=== PATIENT | female | born 1960 | race Caucasian/White ===

== ENCOUNTER 2018-03-04 14:00 | Emergency (ER) | payer OTHER ==
[2018-03-04 14:10] VITALS: BP 121/75; PULSE 110; RESP 18; TEMP 98.6
[2018-03-04] MEDS ORDERED: CLINDAMYCIN 150 MG CAP PO STA (14:42)
--- NOTE | 2018-03-04 14:45 | ED ---
ENT HPI - General Chief complaint: ENT Stated complaint: Jaw swelling Time Seen by Provider: 03/04/18 14:12 Source: patient, RN notes reviewed, old records reviewed Mode of arrival: ambulatory Limitations: no limitations - History of Present Illness Initial comments: Patient is a 58-year-old female with chief complaint of right-sided jaw pain and swelling for the past day. Patient reports is radiating up towards her right ear. She states that she started to have some minor swelling over the right side of her jaw 2 days ago. More pronounced today. Patient is here for the next month on vacation. She is originally from [place]. History of hypertension. Patient states that she is not diabetic. She does wear dentures. She does take care of her dentures and triceps of them every night. It has been difficult to her distal, radial night was traveling. Patient states that she is occasionally had some sweats denies any specific fevers. She denies any difficulty breathing or swallowing. - Related Data Previous Rx's Medication Instructions Recorded Clindamycin [Cleocin] 450 mg PO TID 7 Days capsule 03/04/18 Allergies Allergy/AdvReac Type Severity Reaction Status Date / Time codeine AdvReac nose Verified 03/04/18 14:10 itching and vomiting Review of Systems ROS Statement: Those systems with pertinent positive or pertinent negative responses have been documented in the HPI. ROS Other: All systems not noted in ROS Statement are negative. Past Medical History Past Medical History: GERD/Reflux, Hypertension History of Any Multi-Drug Resistant Organisms: None Reported Past Surgical History: Section, Cholecystectomy Past Psychological History: Depression Smoking Status: Current every day smoker Past Alcohol Use History: None Reported Past Drug Use History: None Reported General Exam - General Exam Comments Initial Comments: Patient's a 58-year-old female presents emergency Department today. She is well -appearing. No acute distress. Limitations: no limitations General appearance: alert, in no apparent distress Head exam: Present: atraumatic, normocephalic, normal inspection Eye exam: Present: normal appearance, PERRL, EOMI. Absent: scleral icterus, conjunctival injection, periorbital swelling ENT exam: Present: mucous membranes moist. Absent: normal exam (Patient does have evidence of swelling over the right side of her jaw. She wears dentures. Tenderness over the gumline on the right molar aspect. No drainable abscess at this time.) Neck exam: Present: normal inspection. Absent: tenderness, meningismus, lymphadenopathy Respiratory exam: Present: normal lung sounds bilaterally. Absent: respiratory distress, wheezes, rales, rhonchi, stridor Cardiovascular Exam: Present: regular rate, normal rhythm, normal heart sounds. Absent: systolic murmur, diastolic murmur, rubs, gallop, clicks GI/Abdominal exam: Present: soft, normal bowel sounds. Absent: distended, tenderness, guarding, rebound, rigid Extremities exam: Present: normal inspection, full ROM, normal capillary refill. Absent: tenderness, pedal edema, joint swelling, calf tenderness Back exam: Present: normal inspection Neurological exam: Present: alert, oriented X3, CN II-XII intact Psychiatric exam: Present: normal affect, normal mood Skin exam: Present: warm, dry, intact, normal color. Absent: rash Course Vital Signs 03/04/18 14:07 Temperature 98.6 F Pulse Rate 110 H Respiratory 18 Rate Blood Pressure 121/75 O2 Sat by Pulse 94 L Oximetry Medical Decision Making - Medical Decision Making 4-year-old female presents with right-sided jaw swelling and pain radiating up or right ear for the past day. This time she does have some evidence of lymphadenopathy over the right tonsillar region as well as some irritation over the gumline and tenderness over the gumline. She has no palpable abscess within the gums at this time. She does wear dentures, is a smoker and history of hypertension. At this time and like to put the Patient on antibiotics for possibility of jaw abscess at this time. I discussed her instructed her on strict return parameters and if there is any fevers chills or worsening swelling she must return to the emergency department. She has no significant trismus, difficulty breathing or any other symptoms or uvula swelling at this time. Patient agrees to treatment plan will comply. Return parameters were discussed. Given initial dose of clindamycin and emergency department. Disposition Clinical Impression: Jaw inflammation, right, Gingival abscess Disposition: HOME SELF-CARE Condition: Good Instructions: Dental Abscess (ED) Additional Instructions: and advised to follow-up with primary care physician or return to the emergency department if any alarming signs or symptoms occur. Take antibiotic as directed. Make sure that you're having yogurt or other probiotics while taking this antibiotic. Patient should return to the emergency department if any alarming signs or symptoms occur. Prescriptions: Clindamycin [Cleocin] 450 mg PO TID 7 Days capsule Is patient prescribed a controlled substance at d/c from ED?: No Referrals: None,Stated [Primary Care Provider] - 1-2 days Latonya Lincoln MD [STAFF PHYSICIAN] - 1-2 days Time of Disposition: 14:44
== END 2018-03-04 14:55 | disposition home or self-care (01) ==
LOC: EC 14:00
DX: K05.219 Aggressive periodontitis, localized, unspecified severity (principal); M27.2 Inflammatory conditions of jaws; H92.01 Otalgia, right ear; F17.200 Nicotine dependence, unspecified, uncomplicated; Z88.5 Allergy status to narcotic agent; Z97.2 Presence of dental prosthetic device (complete) (partial)
CPT/HCPCS: 99283